=== PATIENT | male | born 1955 | race Caucasian/White ===

== ENCOUNTER 2016-10-26 07:13 | Emergency (ER) | payer OTHER ==
[~2016-10-26] VITALS: Ht 182.9 cm; Wt 102.1 kg
[~2016-10-26 07:13] MED LIST: AGELESS MALE; ALPR0.254 PO; ATOR20TA58 PO; FENO135C PO; PANT40TA5 PO; TRAZ50TA15 PO
--- NOTE | 2016-10-26 07:16 | PHYS DOC ---
Past Medical History Past Medical History: GERD, High Cholesterol Past Surgical History: Other Additional Past Surgical Histo: heel spur Alcohol Use: Occasionally Drug Use: None Adult General Chief Complaint Chief Complaint: CHEST PAIN HPI HPI Patient is a 61 year old male who presents with chest pain. He states he woke up around 4 AM with right sided sharp achy pain that radiated to his right shoulder. He states it was constant for about one hour and then resolved on its own. He denies any nausea, shortness of breath or diaphoresis associated with this. States he's had this before and it was a muscle ache where he worked it out. Today he states nothing made the pain better or worse and it resolved on it's own. He has had a stress test is been more than 3 years ago he thinks that was normal at that time. He does have a history of tobacco abuse and stopped smoking 65 months ago but has COPD based on his primary care physician's diagnosis according the patient and has elevated right glyceride's and cholesterol of which is being treated for. Does have family history of heart attacks and mom and dad and a sister with valve disease. He states he's pain-free. Review of Systems Review of Systems Constitutional: Denies fever or chills [] Eyes: Denies change in visual acuity, redness, or eye pain [] HENT: Denies nasal congestion or sore throat [] Respiratory: Denies cough or shortness of breath [] Cardiovascular: No additional information not addressed in HPI [] GI: Denies abdominal pain, nausea, vomiting, bloody stools or diarrhea [] : Denies dysuria or hematuria [] Musculoskeletal: Denies back pain or joint pain [] Integument: Denies rash or skin lesions [] Neurologic: Denies headache, focal weakness or sensory changes [] Endocrine: Denies polyuria or polydipsia [] Current Medications Current Medications Current Medications Medications (Trade) Dose Ordered Sig/Tracy Start Time Stop Time Status Last Admin Dose Admin Aspirin (Children'S Aspirin) 324 mg 1X ONCE 10/26/16 07:30 10/26/16 07:31 DC 10/26/16 07:51 243 MG Nitroglycerin (Nitrostat) 0.4 mg PRN Q5MIN PRN 10/26/16 07:30 10/27/16 07:29 10/26/16 07:52 0.4 MG Allergies Allergies Allergies Coded Allergies Type Severity Reaction Last Updated Verified No Known Drug Allergies 01/05/15 No Physical Exam Physical Exam Constitutional: Well developed, well nourished, no acute distress, non-toxic appearance. [] HENT: Normocephalic, atraumatic, bilateral external ears normal, oropharynx moist, no oral exudates, nose normal. [] Eyes: PERRLA, EOMI, conjunctiva normal, no discharge. [] Neck: Normal range of motion, no tenderness, supple, no stridor. [] Cardiovascular:Heart rate regular rhythm, no murmur [] Lungs & Thorax: Bilateral breath sounds clear to auscultation [] Abdomen: Bowel sounds normal, soft, no tenderness, no masses, no pulsatile masses. [] Skin: Warm, dry, no erythema, no rash. [] Back: No tenderness, no CVA tenderness. [] Extremities: No tenderness, no cyanosis, no clubbing, ROM intact, no edema. [] Neurologic: Alert and oriented X 3, normal motor function, normal sensory function, no focal deficits noted. [] Psychologic: Affect normal, judgement normal, mood normal. [] Current Patient Data Vital Signs Vital Signs Date Time Temp Pulse Resp B/P Pulse Ox O2 Delivery O2 Flow Rate FiO2 10/26/16 07:52 87 153/87 10/26/16 07:15 97.9 18 98 Room Air 97.9 Lab Values Laboratory Tests Test 10/26/16 05:15 10/26/16 07:30 Urine Collection Type Unknown Urine Color Yellow Urine Clarity Clear Urine pH 7.0 Urine Specific Bethany <=1.005 Urine Protein Negativemg/dL (NEG-TRACE) Urine Glucose (UA) Negativemg/dL (NEG) Urine Ketones (Stick) Negativemg/dL (NEG) Urine Blood Negative (NEG) Urine Nitrite Negative (NEG) Urine Bilirubin Negative (NEG) Urine Urobilinogen Dipstick 0.2mg/dL (0.2 mg/dL) Urine Leukocyte Esterase Negative (NEG) Urine RBC 0/HPF (0-2) Urine WBC 0/HPF (0-4) Urine Bacteria 0/HPF (0-FEW) White Blood Count 5.5x10^3/uL (4.0-11.0) Red Blood Count 4.48x10^6/uL (4.30-5.70) Hemoglobin 14.5g/dL (13.0-17.5) Hematocrit 43.4% (39.0-53.0) Mean Corpuscular Volume 97fL (79-100) Mean Corpuscular Hemoglobin 32pg (25-35) Mean Corpuscular Hemoglobin Concent 33g/dL (31-37) Red Cell Distribution Width 12.9% (11.5-14.5) Platelet Count 199x10^3/uL (140-400) Neutrophils (%) (Auto) 67% (31-73) Lymphocytes (%) (Auto) 20% (24-48) L Monocytes (%) (Auto) 9% (0-9) Eosinophils (%) (Auto) 4% (0-3) H Basophils (%) (Auto) 0% (0-3) Neutrophils # (Auto) 3.7x10^3uL (1.8-7.7) Lymphocytes # (Auto) 1.1x10^3/uL (1.0-4.8) Monocytes # (Auto) 0.5x10^3/uL (0.0-1.1) Eosinophils # (Auto) 0.2x10^3/uL (0.0-0.7) Basophils # (Auto) 0.0x10^3/uL (0.0-0.2) Prothrombin Time 12.7SEC (11.7-14.0) Prothrombin Time INR 1.0 (0.8-1.1) Sodium Level 143mmol/L (136-145) Potassium Level 3.9mmol/L (3.5-5.1) Chloride Level 104mmol/L (98-107) Carbon Dioxide Level 27mmol/L (21-32) Anion Gap 12 (6-14) Blood Urea Nitrogen 17mg/dL (8-26) Creatinine 1.1mg/dL (0.7-1.3) Estimated GFR (Cockcroft-Gault) 68.1 Glucose Level 95mg/dL (70-99) Calcium Level 9.2mg/dL (8.5-10.1) Magnesium Level 1.8mg/dL (1.8-2.4) Total Bilirubin 0.3mg/dL (0.2-1.0) Direct Bilirubin 0.1mg/dL (0.0-0.2) Aspartate Amino Transferase (AST) 22U/L (15-37) Alanine Aminotransferase (ALT) 31U/L (16-63) Alkaline Phosphatase 43U/L (46-116) L Creatine Kinase 135U/L (39-308) Creatine Kinase MB (Mass) 0.8ng/mL (0.0-3.6) Creatine Kinase MB Relative Index 0.6% (0-4) Troponin I Quantitative < 0.017ng/mL (0.000-0.055) AK-Ihz-W-Type Natriuretic Peptide 13pg/mL (0-124) Total Protein 7.0g/dL (6.4-8.2) Albumin 3.8g/dL (3.4-5.0) Lipase 247U/L (73-393) Laboratory Tests 10/26/16 07:30 Laboratory Tests 10/26/16 07:30 EKG EKG EKG shows sinus rhythm rate of [address] elevations or T-wave inversions, normal axis, as interpreted by me. Radiology/Procedures Radiology/Procedures [facility] [address] [place] [address] IMAGING REPORT Signed PATIENT: HARDY FOOTE ACCOUNT: [id number] : 1955 LOCATION: ER AGE: 61 SEX: M EXAM STATUS: REG ER ORD. PHYSICIAN: MEGHANN NUNN MD REASON: chest pain PROCEDURE: PORTABLE CHEST 1V Portable chest, 10/26/2016: History: Chest pain Comparison is made to a study from 05/18/2013. The heart size and pulmonary vascularity are normal. There appears to be a small granuloma in the right upper lobe. No acute infiltrates are seen. There is no evidence of pleural fluid. IMPRESSION: No acute cardiopulmonary abnormality is detected. DICTATED and SIGNED BY: CLARISSA ROSENBERG MD DATE: 10/26/16 0800 CC: MEGHANN NUNN MD; ANGELA DUQUE MD ~ Impressions: Chest pain Course & Med Decision Making Course & Med Decision Making Pertinent Labs and Imaging studies reviewed. (See chart for details) Patient's EKG is not concerning however I do not have any old ones to compare it to. Does have some flattening of aVL and lead V2 however there is no ST elevations or other concerns. His pain lasted for an hour and resolved. He does have dyslipidemia, tobacco abuse and family history of heart disease. His last stress test was greater than 3 years ago per the patient. I recommend admission and repeat enzymes however the patient states he rather be discharged home. He is leaving AGAINST MEDICAL ADVICE. He understands the risk that he might be having heart damage and is willing to accept this risk of either minute permenant disability or . He is instructed to return back to ER if he has any worsening symptoms such as chest pain, shortness of breath, lightheadedness dizziness or other concerns. He is in stable condition at this time leaving AGAINST MEDICAL ADVICE. Dragon Disclaimer Dragon Disclaimer This electronic medical record was generated, in whole or in part, using a voice recognition dictation system. Departure Departure Impression: Primary Impression: Chest pain Disposition: AGAINST MEDICAL ADVICE Condition: STABLE Patient Instructions: Chest Pain (Nonspecific) Additional Instructions: Your blood work do not show any acute abnormalities, your EKG does not show any acute abnormalities, your pain has resolved. I recommended that he be admitted for further workup and evaluation to make sure you do not have any heart damage as we cannot determine this based on one set of lab values. You have decided he rather go home and follow-up with your primary care physician and you are leaving AGAINST MEDICAL ADVICE. You understand that you could be having heart damage which could result in or permanent disability. Please return to the ER if your pain returns, you feel lightheaded dizzy, you have troubles breathing or you have any other concerns. MEGHANN NUNN MD Oct 26, 2016 07:16
--- NOTE | 2016-10-26 07:28 | EKG ---
[facility] [address] [place] [address] Test Date: 2016-10-26 Test Time: 07:22:44 Pat Name: HARDY FOOTE Department: Room: Gender: M [employer]: : 1955 Requested By: MEGHANN NUNN Order Number: [id number] Reading MD: Measurements Intervals [place] Rate: 89 P: 36 TN: 178 QRS: 46 QRSD: 98 T: 48 QT: 368 QTc: 449 Interpretive Statements No previous ECG available for comparison
[2016-10-26] MEDS ORDERED: NITROGLYCERIN SUBLINGUAL 0.4 MG BOTTLE OF 25. SL PRN (07:30)
[2016-10-26] MEDS ORDERED: ASPIRIN 81 MG TAB.CHEW PO ONE (07:30)
[2016-10-26 07:47] LABS: BASO % 0 % (0-3); EOS % 4 % (0-3); HEMATOCRIT 43.4 % (39.0-53.0); HEMOGLOBIN 14.5 g/dL (13.0-17.5); LYMPH # 1.1 x10^3/uL (1.0-4.8); LYMPH % 20 % (24-48); MEAN CORPUSCULAR HEMOGLOBIN 32 pg (25-35); MEAN CORPUSCULAR HGB CONC 33 g/dL (31-37); MEAN CORPUSCULAR VOLUME 97 fL (79-100); MONO % 9 % (0-9); NEUT % 67 % (31-73); PLATELET COUNT 199 x10^3/uL (140-400); RED BLOOD COUNT 4.48 x10^6/uL (4.30-5.70); RED CELL DISTRIBUTION WIDTH 12.9 % (11.5-14.5); WHITE BLOOD COUNT 5.5 x10^3/uL (4.0-11.0)
[2016-10-26 07:52] LABS: CALCIUM 9.2 mg/dL (8.5-10.1); CREATININE 1.1 mg/dL (0.7-1.3); GFR 68.1; POTASSIUM 3.9 mmol/L (3.5-5.1)
[2016-10-26 07:57] LABS: ALBUMIN 3.8 g/dL (3.4-5.0); DIRECT BILIRUBIN 0.1 mg/dL (0.0-0.2); MAGNESIUM 1.8 mg/dL (1.8-2.4); TOTAL BILIRUBIN 0.3 mg/dL (0.2-1.0)
[2016-10-26 08:03] LABS: CKMB INDEX 0.6 % (0-4); CKMB MASS 0.8 ng/mL (0.0-3.6)
--- NOTE | 2016-10-26 08:03 | RAD ---
Portable chest, 10/26/2016: History: Chest pain Comparison is made to a study from 05/18/2013. The heart size and pulmonary vascularity are normal. There appears to be a small granuloma in the right upper lobe. No acute infiltrates are seen. There is no evidence of pleural fluid. IMPRESSION: No acute cardiopulmonary abnormality is detected.
[2016-10-26 08:05] LABS: PROTHROMBIN TIME PATIENT 12.7 SEC (11.7-14.0)
[2016-10-26 08:07] LABS: BILIRUBIN,URINE NEGATIVE (NEG); GLUCOSE,URINE NEGATIVE (NEG); NITRITE,URINE NEGATIVE (NEG); PROTEIN,URINE NEGATIVE (NEG-TRACE); UROBILINOGEN,URINE 0.2 mg/dL (0.2 mg/dL)
[2016-10-26 08:16] LABS: BACTERIA,URINE 0 /HPF (0-FEW); RBC,URINE 0 /HPF (0-2); WBC,URINE 0 /HPF (0-4)
[2016-10-26 09:30] VITALS: BP 146/79
== END 2016-10-26 09:41 | disposition left against medical advice (07) ==
LOC: ER 07:13
DX: R07.89 Other chest pain (principal); M25.511 Pain in right shoulder; E78.00 Pure hypercholesterolemia, unspecified; K21.9 Gastro-esophageal reflux disease without esophagitis; F17.200 Nicotine dependence, unspecified, uncomplicated; Z86.79 Personal history of other diseases of the circulatory system
CPT/HCPCS: 36415; 71010; 80048; 80076; 81001; 82553; 83690; 83735; 83880; 84484; 85027; 85610; 93005; 99285-25